=== PATIENT | female | born 1965 | race Caucasian/White ===

== ENCOUNTER → 2018-03-24 | Outpatient (REF) | payer OTHER ==
[2018-03-24 17:24] LABS: HEMATOCRIT 54.8 % (36.0-47.0); MEAN CORPUSCULAR HEMOGLOBIN 30.2 pg (27.0-33.0); MEAN CORPUSCULAR HGB CONC 32.8 g/dl (32.0-36.5); MEAN CORPUSCULAR VOLUME 91.8 fl (80.0-96.0); PLATELET COUNT, AUTOMATED 236 10^3/uL (150-450); RED BLOOD COUNT 5.97 10^6/uL (4.00-5.40); WHITE BLOOD COUNT 5.4 10^3/uL (4.0-10.0)
[2018-03-24 17:32] LABS: ALBUMIN 4.1 GM/DL (3.2-5.2); ALT/SGPT 37 U/L (12-78); BILIRUBIN,TOTAL 0.3 MG/DL (0.2-1.0); BLOOD UREA NITROGEN 11 MG/DL (7-18); CALCIUM LEVEL 9.1 MG/DL (8.5-10.1); CARBON DIOXIDE LEVEL 29 MEQ/L (21-32); CHLORIDE LEVEL 102 MEQ/L (98-107); CREATININE FOR GFR 0.95 MG/DL (0.55-1.30); GLOMERULAR FILTRATION RATE > 60.0 (>51); GLUCOSE, FASTING 83 MG/DL (70-100); POTASSIUM SERUM 5.1 MEQ/L (3.5-5.1); SODIUM LEVEL 138 MEQ/L (136-145); TOTAL PROTEIN 7.6 GM/DL (6.4-8.2)
== END ==
LOC: M SFHCCLAY 09:30
PROVIDERS: ATTEND Family Medicine
DX: R10.30 Lower abdominal pain, unspecified (principal)

== ENCOUNTER → 2018-04-08 | Outpatient (CLI) | payer OTHER ==
[~2018-04-08] MED LIST: GASTROGRAFIN SOLUTION 30ML (Q9963) As Ordered ONE; ISOVUE-370 76% 100ML VIAL (Q9967) As Ordered ONE
--- NOTE | 2018-04-08 16:29 | REP ---
CT ABDOMEN AND PELVIS WITH ORAL AND IV CONTRAST: 04/08/2018. Clinical history: Lower abdominal pain. Technique: Oral Gastrografin 10 ml in 290 ml of flavored water for two doses per our bowel contrast protocol along with bolus of 100 ml Isovue [id number] and scanning through the abdomen and pelvis. Coronal and sagittal reconstructions were provided. Comparison: There are no prior studies. CT abdomen: The lung bases are clear. The heart is not enlarged. There is no pericardial thickening or effusion. There is a small hiatal hernia evident. Liver and spleen are not enlarged and show no focal mass. The gallbladder shows no calcified stone or mass. Pancreas is without mass, ductal dilatation, calcification, peripancreatic adenopathy or fluid collections. Adrenal glands normal. The kidneys show no stone, mass, cyst, hydronephrosis or hydroureter. There is an extrarenal pelvis on the right, but no hydroureter or ureteral stone on either side. Aorta is unremarkable. No periaortic or retroperitoneal pathologic sized lymphadenopathy. Small bowel loops grossly unremarkable. Abdominal portion of the colon shows oral contrast reaching the splenic flexure. There is stool and gas scattered within the abdominal colon but no colitis or diverticulitis. No stricture or mass. No upper abdominal ascites. I see no perforation or free air on lung window review of all CT slices in the abdomen or pelvis. The bone windows show vacuum phenomenon at L2-3 and L4-5 with degenerative disc changes to a lesser extent at L3-4 and in the lower thoracic levels. No compression deformity or destructive lesion. Significant facet arthropathy at L5-S1, less at L4-5, but no spondylolysis or spondylolisthesis. CT pelvis: The bony sacrum, pelvis, hips and pubic rami show some degenerative changes but no destructive lesion or fracture. There is a bone island in the right femoral head as a benign finding. Distal ureters and bladder show no stone. Bladder only partially filled. Small bowel loops throughout the abdomen and pelvis of normal caliber and show scattered fluid and contrast throughout without any acute abnormality. There is no ventral or inguinal hernia nor pathologic sized inguinal adenopathy. The distal left colon is without any sign of colitis or diverticulitis. Small bowel loops in deep pelvis intact. The distal sigmoid shows a zone of mild inflammatory change adjacent to it in the fat suggesting very mild diverticulitis may be present. I do not see abscess or perforation. There is no ascites. There are no inflammatory changes about the cecum to suggest appendicitis or pericecal inflammatory change. Impression: 1. Some very mild subtle inflammatory change about the distal sigmoid within its fat that may reflect some mild diverticulitis or focal colitis, but I do not see any generalized inflammatory changes, stricture, mass or significant diverticulosis elsewhere. 2. No renal, ureteral or bladder stone. No hydronephrosis. 3. Aorta and branches, solid organs in the upper abdomen, gallbladder all intact. Small hiatal hernia. Electronically Signed by Florentino Wolfe MD 04/08/2018 05:54 P
== END ==
LOC: EDSEX 03-30 17:00 → M RAD 12:44
PROVIDERS: ATTEND Family Medicine
DX: R10.9 Unspecified abdominal pain (principal)
CPT/HCPCS: 74177; Q9963; Q9967

== ENCOUNTER → 2018-04-15 | Outpatient (REF) | payer OTHER | LOC: M SFHCCLAY 08:54 | PROVIDERS: ATTEND Family Medicine | DX: I10 Essential (primary) hypertension (principal); D86.0 Sarcoidosis of lung; R23.2 Flushing ==